=== PATIENT | male | born 1985 | race Caucasian/White ===

== ENCOUNTER 2023-01-10 09:58 | Outpatient (CLI) | payer BC, SELFPAY ==
--- NOTE | 2023-01-10 10:21 | ECG_ITS ---
Measurements Intervals [place] Rate: 59 P: 59 VA: 195 QRS: 31 QRSD: 130 T: 222 QT: 430 QTc: 427 Interpretive Statements SINUS BRADYCARDIA WITH FREQUENT VENTRICULAR PREMATURE COMPLEXES MODERATE INTRAVENTRICULAR CONDUCTION DELAY [105+ ms QRS DURATION, 80+ ms Q/S IN V1/V2, NO Q AND 60+ ms R IN I/aVL/V5/V6] ST DEVIATION AND MODERATE T-WAVE ABNORMALITY, CONSIDER ANTEROLATERAL ISCHEMIA [-0.1+ mV T WAVE IN V3-V6] ST DEVIATION AND MODERATE T-WAVE ABNORMALITY, CONSIDER INFERIOR ISCHEMIA [-0.1+ mV T WAVE IN II/aVF] NO PREVIOUS ECG AVAILABLE FOR COMPARISON Electronically Signed On 01-10-2023 14:29:33 CDT by Nicolasa Sawyer M.D.
== END 2023-01-10 09:59 | disposition home or self-care (01) ==
PROVIDERS: PCP Internal Medicine
DX: I48.19 Other persistent atrial fibrillation (principal); I45.9 Conduction disorder, unspecified
CPT/HCPCS: 93005

== ENCOUNTER 2024-07-20 17:54 | Emergency (ER) | payer SELFPAY ==
--- OUTSIDE RECORDS SUMMARY | 2024-07-20 17:56 | XMS_ITS | Encounter Summary ---
Author Organization [facility] Address [address] [place] [address] Care Team Providers Care Semiconductor Wafers Etch Operator Name Role Phone Josh Donaldson DO Primary Care Provider + Tim Abreu MD Unavailable [phone] Encounter Details Date Type Department Care Team (Late st Contact Info) Description 11/27/2022 MyChart Message Enc [facility] Medical Group Family & Internal Medicine [facility] [address] [place] [address] Josh Donaldson DO [address] [place] [address] Rx to treat poison josee Social History Tobacco Use Types Packs/Day Years Used Date Smoking Tobacco: Never Smokeless Tobacco: Never Alcohol Use Standard Drinks/Week Comments Not Currently 0 (1 standard drink = 0.6 oz pur e alcohol) AUDIT-C Answer Date Recorded Frequency of Alcohol Consumption 2-3 times a wee k 06/21/2019 Average Number of Drinks Not on file 020 Frequency of Binge Drinking Not on file 06/05 PHQ-2 Answer Date Recorded Patient Health Questionnaire-2 Score 0 06/27/2022 Sex and Gender Information Value Date Recorded Sex Assigned at Male 06/30/2024 9:12 AM CDT Legal Sex Male 8:18 PM CDT Gender Identity Male 06/30/2024 9:12 AM CDT Sexual Orientation Not on file Occupation Industry Job Start Date Job End Date Not on file Not on file Not on file Not on file documented as of this encounter Functional Status * RETIRED Are you deaf or do you have serious difficulty hearing Answer Date of Assessment Author Status No 06/22/2019 2:24 AM CDT Activ e * RETIRED Are you blind or do you have serious difficulty seeing, even when wearing glasses? Answer Date of Assessment Author Status No 06/22/2019 2:24 AM CDT Activ e * Do you have serious difficulty walking or climbing stairs? Answer Date of Assessment Author Status No 06/22/2019 2:24 AM CDT Rachael Mendoza RN Active * Do you have difficulty dressing or bathing? Answer Date of Assessment Author Status No 06/22/2019 2:24 AM CDT Rachael Mendoza RN Active * Because of a physical, mental, or emotional condition, do you have difficulty doing errands alone such as visiting a doctor's office or shopping? Answer Date of Assessment Author Status No 06/22/2019 2:24 AM CDT Rachael Mendoza RN Active documented as of this encounter Mental Status * Because of a physical, mental, or emotional condition, do you have serious difficulty concentrating, remembering, or making decisions? Answer Entry Date Author Status No 06/22/2019 2:24 AM CDT Rachael Mendoza RN Active documented in this encounter Plan of Treatment Upcoming Encounters Date Type Department Care Team (Late st Contact Info) Description 09/02/2024 1:00 PM CDT Office Visit [facility] Medical Group Multispecialty Care - [facility] [address] [facility] [address] [place] [phone] Josh Donaldson P, DO [address] [place] [address] Xi Taveras NP [address] [facility] [address] [place] [address] documented as of this encounter Visit Diagnoses Not on filedocumented in this encounter Additional Health Concerns Assessment Noted Time PHQ-9 Depression Total Score: 0 06/27/19 22 9:08 AM CDT documented as of this encounter Care Teams Semiconductor Wafers Etch Operator Relationship Specialty Start Date End Date Josh Donaldson DO [address] [place] [id number] PCP - General FAMILY PRACTICE 07/06/19 Tim Abreu MD [facility]. [facility] [address] [place] [address] [employer] Design Checker CARDIOVASCULAR DISEASE 07/07/19 documented as of this encounter
--- OUTSIDE RECORDS SUMMARY | 2024-07-20 17:56 | XMS_ITS | Encounter Summary ---
Author Organization [facility] Address [address] [place] [address] Care Team Providers Care Hostage Negotiator Name Role Phone None, Provider Primary Care Provider Unavaila Josh Pham DO Primary Care Provider + Tim Abreu MD Unavailable [phone] Encounter Details Date Type Department Care Team (Late st Contact Info) Description 06/30/2019 Hospital Follow-up Call [facility] [place] [address] Sara Hu, Company Manager Social History Tobacco Use Types Packs/Day Years Used Date Smoking Tobacco: Never Smokeless Tobacco: Never Alcohol Use Standard Drinks/Week Comments Yes 0 (1 standard drink = 0.6 oz pur e alcohol) AUDIT-C Answer Date Recorded Frequency of Alcohol Consumption 2-3 times a wee k 06/21/2019 Average Number of Drinks Not on file 020 Frequency of Binge Drinking Not on file 06/05 Sex and Gender Information Value Date Recorded Sex Assigned at Male 06/30/2024 9:12 AM CDT Legal Sex Male 8:18 PM CDT Gender Identity Male 06/30/2024 9:12 AM CDT Sexual Orientation Not on file documented as of this [...] Description 09/02/2024 1:00 PM CDT Office Visit [facility] Medical Group Multispecialty Care - [address], [address] [place] [phone] Josh Donaldson DO [address] [place] [address] Xi Taveras NP [address] [place] [address] [place] [address] documented as of this encounter Visit Diagnoses Not on filedocumented in this encounter Care Teams Hostage Negotiator Relationship Specialty Start Date End Date None, Provider, PCP - General 06/21/19 07/05/19 Josh Donaldson DO [address] [place] [address] PCP - General FAMILY PRACTICE 07/06/19 Tim Abreu MD [facility]. [address] [address] [employer] Outsole Cutter Machine CARDIOVASCULAR DISEASE 07/07/19 documented as of this encounter
--- OUTSIDE RECORDS SUMMARY | 2024-07-20 17:56 | XMS_ITS | Referral Summary ---
Author Organization [facility] Address [address] [facility] [place] [address] Care Team Providers Care Cnc Specialist Name Role Phone MendozaKaelynJosh Josesito Primary Care Provide r Niraj Lima MD PhD Unavailable + Lizabeth Tinoco RN Unavailable Unavaila Letha Templeton MD Unavailable Miscellaneous, Not In File Unavailable Unava ilable Encounters Date Type Department Care Team Description 04/29/2024 Orders Only [facility] Transplant Heart [address] [facility] [address] Mailstop [phone] [place] [address] Lizabeth Tinoco, RN from Last 3 Months Allergies Active Allergy Reactions Criticality Noted Date Comments Albuterol Palpitations Low 10/30/2022 Amoxicillin Hives Medium 06/21/2019 Cefaclor Hives Medium 10/12/2015 Shellfish Containing Products Swelling Medium 2018 Medications aspirin 81 mg enteric coated tabletIndicatio ns:prevention of thrombosis,h/o AFIB Take 1 tablet (81 mg total) by mouth every morning 06/30/19 20 Active cetirizine (ZyrTEC) 10 mg tabletIndicatio ns:Allergic Rhinitis Take 1 tablet (10 mg total) by mouth every morning Active diphenhydramine HCl (BENADRYL ALLERGY ORAL)Indication s:allergy Take 25 mg by mouth as needed Active cholecalciferol (VITAMIN D-3) 2000 unit tablet Take 1 tablet (2,000 Units total) by mouth every morning Active warfarin (COUMADIN) 2 mg tabletIndicatio ns:atrial fibrillation Take 4 tablets (8 mg total) by mouth daily 120 tablet 01/01/20 23 Active Additional Information Patient taking differently: 6 mgoral Daily, Indications: atrial fibrillation, Reported on 02/18/2024 sacubitriL-vals argelia (ENTRESTO) 24-26 mg tabletIndicatio ns:chronic heart failure Take 1 tablet by mouth 2 (two) times a day 180 tablet 3 11/28/19 24 025 Active empagliflozin (JARDIANCE) 10 mg tablet Take 1 tablet (10 mg total) by mouth daily 90 tablet 3 12/03/19 24 Active Klor-Con M20 20 mEq CR tablet TAKE 2 TABLETS BY MOUTH DAILY 180 tablet 3 02/23/20 24 Active carvediloL (COREG) 6.25 mg tablet TAKE 1 TABLET BY MOUTH TWICE A DAY WITH MEALS 180 tablet 3 02/23/20 24 Active spironolactone (ALDACTONE) 25 mg tablet TAKE 1 TABLET (25 MG TOTAL) BY MOUTH DAILY. 90 tablet 3 03/22/20 24 025 Active furosemide (LASIX) 40 mg tablet Take 1 tablet (40 mg total) by mouth daily. May also take 1 tablet (40 mg total) as needed (as needed for fluid retention.). 180 tablet 3 04/29/19 25 026 Active atorvastatin (LIPITOR) 40 mg tablet TAKE 1 TABLET BY MOUTH EVERY DAY 90 tablet 3 07/10/19 25 Active atorvastatin (Lipitor) 40 mg tablet Take 1 tablet (40 mg total) by mouth daily 30 tablet 11 08/06/19 24 025 Discontinued Active Problems Problem Noted Date Diagnosed Date Acute postoperative pain 12/19/2022 Assessment & Plan (12/30/2022 2:54 PM CDT): Postop pain following cardiac surgery. - PRNTylenol - PRN Oxycodone - utilize splinting technique - scheduled Robaxin - Main source of pain right now is the scrotum - OT lymphedema wrapped scrotum with compression and ice as needed ABLA (acute blood loss anemia) 12/19/2022 Assessment & Plan (12/30/2022 2:54 PM CDT): Expected finding following cardiac surgery. - Hgb stable - CBC daily NICM (nonischemic cardiomyopathy) 12/19/2022 Assessment & Plan (12/30/2022 2:51 PM CDT): Intraop AISHA post procedure with EF 35-40% Weaned of the Epi day 1 after surgery Switched metoprolol to home coreg, restarted low dose of home Entresto Will restart Farxiga on discharge Continue Lasix and Aldactone Hematoma of groin 12/19/2022 Assessment & Plan (12/26/2022 4:49 PM CDT): Arterial access intra-op with noted L groin hematoma extending into scrotum. CTA obtained: no evidence of active extravasation or PSA - CBC with drop to 7.6 (from 10), scrotum more enlarged and painful. Urology consulted and a scrotal US was obtained. Results: Mild scrotal wall edema with mild bilateral hydrocele. No intratesticular mass. Mild bilateral varicocele. 8 mm scrotolith in the body of the right epididymis. 3.5 cm hematoma in the left groin, which is not significantly changed in size compared to prior CT study dated 12/17/2022. -Gaytan out, voiding without issues -Swelling remains, will likely take 6-8 weeks to fully heal -Heparin drip as above Dilated aortic root 10/21/2022 Assessment & Plan (12/20/2022 10:29 AM CDT): See Aortic regurgitation problem Pseudoaneurysm 10/21/2022 Severe aortic regurgitation 10/21/2022 Assessment & Plan (12/30/2022 2:50 PM CDT): (12/17) mechanical AVR (27-29 On-X), aortoplasty, bovine pericardial patch repair of pseudoaneurysm and JASMYN ligation (40 mm clip). Intra-op AISHA demonstrating EF 35-40%, normal RV function, no PVL, mild MR and mild TR on 0.05 mcg/kg/min epinephrine Epi weaned off overnight 9/13 Continue ASA, Coreg Statin not indicated 2V CXR: Unchanged cardiomediastinal silhouette with enlarged heart size. Mild bibasilar atelectasis. No pneumothorax. Small left pleural effusion, no right pleural effusion. -Lasix to po, continue aldactone -OT placed Tubigrip compression for scrotal swelling, will likely take 6-8 weeks to fully resolve Atrial fibrillation 06/26/2021 Assessment & Plan (12/30/2022 2:54 PM CDT): S/P ablation and JASMYN clip: Went into AF with RVR 12/19 pm Converted early am after amiodarone (bolus and infusion) on 12/20 Amiodarone bolus x 2 and gtt completed Converted to PO load - Amiodarone TID 4 days, down to daily 12/24 - Intermittent rate controlled a-fib, SR 60s - metoprolol switched to home coreg - Qtc daily - K>4, Mg>2.2 - wires out - Coumadin 9mg - Heparin drip restarted 12/25 Aneurysm of aortic root 02/12/2020 Assessment & Plan (02/12/2020 12:53 PM DATA ACQUISITION TECHNICIAN): AISHA showed LVOT aneursym/pseudoaneurysm in region of fibrous continuity between MV/aortic root --Follow up with Dr. Lima next week Aneurysm of aortic root 02/12/2020 Overview (12/29/2021): Last Assessment & Plan: AISHA showed LVOT aneursym/pseudoaneurysm in region of fibrous continuity between MV/aortic root --Follow up with Dr. Lima next week ABBE on CPAP 11/05/2019 Chronic systolic heart failure 08/25/2019 Assessment & Plan (02/12/2020 12:49 PM DATA ACQUISITION TECHNICIAN): EF 37% in 11/2019. Continue coreg, entresto, [place], lasix and digoxin -Continue digoxin until outpatient follow up Persistent atrial fibrillation 08/25/2019 Assessment & Plan (02/12/2020 12:49 PM DATA ACQUISITION TECHNICIAN): S/p ablation today. Continue eliquis, coreg and digoxin. PPI for ppx per cards. - Rhythm appears sinus on tele w/ frequent PVCs -Follow up with cardiology next week Acute viral myocarditis 07/06/2019 Allergic rhinitis 07/06/2019 History of non-ST elevation myocardial infarctio n (NSTEMI) 07/06/2019 Inguinal strain, left, initial encounter 019 Resolved Problems Problem Noted Date Diagnosed Date Resolved Date Acquired deformity of neck 12/19/2022 0 12/19/2022 Immunizations Immunization Administration Dates Next Due Influenza, Unspecified 02/03/2020 Social History Tobacco Use Types Packs/Day Years Used Date Smoking Tobacco: Never Smokeless Tobacco: Never Alcohol Use Standard Drinks/Week Comments Yes 0 (1 standard drink = 0.6 oz pur e alcohol) rare AUDIT-C Answer Date Recorded Q1: How often do you have a drink containing alc ohol? Monthly or less 12/17/2022 Q2: How many drinks containi ng alcohol do you have on a typical day when you are drinking? 1 or 2 12/17/2022 Q3: How often do you have si x or more drinks on one occasion? Never 12/17/2022 Personal Safety Answer Date Recorded Have you ever been in or are you currently in a harmful physical or emotional relationship or is someone making you feel afraid or unsafe? Denies 12/17/2022 Sex and Gender Information Value Date Recorded Sex Assigned at Not on file Legal Sex Male 8:57 PM DATA ACQUISITION TECHNICIAN Gender Identity Not on file Sexual Orientation Straight 09/08/2019 12 :00 PM CDT Last Filed Vital Signs Vital Sign Reading Time Taken Comments Blood Pressure 138/77 02/18/2024 12:25 PM DATA ACQUISITION TECHNICIAN Pulse 55 02/18/2024 12:25 PM DATA ACQUISITION TECHNICIAN Temperature 36.5 C (97.7 F) 12/31/2022 8:06 AM CDT Respiratory Rate 20 12/31/2022 8:06 AM CDT Oxygen Saturation 100% 02/18/2024 12:25 PM DATA ACQUISITION TECHNICIAN Inhaled Oxygen Concentration - - Weight 129.7 kg (286 lb) 02/18/2024 12:25 PM DATA ACQUISITION TECHNICIAN Height 193 cm (6' 4 ) 02/18/2024 12:25 PM DATA ACQUISITION TECHNICIAN Body Mass Index 34.81 02/18/2024 12:25 PM DATA ACQUISITION TECHNICIAN Plan of Treatment Not on file Medical Devices Implanted Type Area Host/Hostess Restaurant Device Identifier Shelf Expiration Date Model / Serial / Lot [employer] [id number] System 6-12fr Mvp Venous Closure Vascade - [id number] Implanted:Qty: 1 on 02/11/2020 by Anderson Peraza MD at [facility] Collagen N/A: Groin [employer] 11/30/2021 800-612C -10U / / [id number] Description:Ref # 800-612c [employer] [id number] System 6-12fr Mvp Venous Closure Vascade - [id number] Implanted:Qty: 1 on 02/11/2020 by Anderson Peraza MD at [facility] Collagen N/A: Groin [employer] 11/17/2021 800-612C -10U / / [id number] Description:Ref # 800-612c [employer] [id number] System 6-12fr Mvp Venous Closure Vascade - [id number] Implanted:Qty: 1 on 02/11/2020 by Anderson Peraza MD at [facility] Collagen N/A: Groin [employer] 11/30/2021 800-612C -10U / / [id number] Description:Ref # 800-612c [employer]um[employer] 53[employer] Medical Cheryl Angio-Seal Vip 6fr Closere Device [id number] - [id number] - [id number] Implanted:Qty: 1 on 12/16/2022 by Mike Williamson MD at [facility] Collagen [employer] Cheryl 07/06/2023 [id number] / [id number] / [id number] [employer] Cheryl Supple Alejandra-Guard [place] Processing 4x4cm Patch Cardiovascular [id number] - S3 - [id number] Implanted:Qty: 1 on 12/17/2022 by Letha Singh MD at [facility] Other - see comments [employer] Cheryl [id number] 07/03/2023 [id number] / 3 / [id number] Atricure Dup Atriclip [place]-Elvis L40 Mm L6 Mm Head Articulation Stiff [id number] - [id number] Implanted:Qty: 1 on 12/17/2022 by Letha Singh MD at [facility] Other - see comments N/A: Heart ATRICURE DUP 04/07/2025 [id number] / / [id number] Description:[place] no. [id number] [employer] 6x6in Patch Thk1.65mm [place] Cardiovascular Ptfe Sterile Latex Free [id number] - [id number] Implanted:Qty: 1 on 12/17/2022 by Letha Singh MD at [facility] N/A: Heart [employer] [id number] 02/01/2027 [id number] / / [id number] On-X Intrnl Valve Coronary Aortic Mechanical On X 27-29mm Onxane- - [id number] - [id number] Implanted:Qty: 1 on 12/17/2022 by Letha Singh MD at [facility] N/A: Heart On-X Intrnl [id number] 03/06/2028 ONXANE-2 11/02 / [id number] / Insurance [facility] CHOICE PLUS [facility] CHOICE PLUS ANTHEM ACCESS CHOICE ANTHEM ACCESS CHOICE [address] [place] [address] Advance Directives For more information, please contact: [phone] * Full Code (Latest Code Status on File) Date Activated Date Inactivated Comments 12/17/2022 11:29 AM 12/31/2022 4:57 PM * Full Code Date Activated Date Inactivated Comments 12/16/2022 2:12 PM 12/16/2022 8:14 PM * Full Code Date Activated Date Inactivated Comments 02/11/2020 7:38 PM 02/12/2020 5:21 PM Care Teams Cnc Specialist Relationship Specialty Start Date End Date Josh Donaldson DO [address] [place] [address] PCP - General Family Medicine 07/27/19 Niraj Lima MD PhD [address] [place] [address] Cardiology 02/21/20 Lizabeth Tinoco RN Heart Failure Coordinator 04/17/[address] [facility] [id number] [place] [address] Surgeon Cardiothoracic Surgery 12/31/22 Miscellaneous, Not In File 12/31/22"
--- OUTSIDE RECORDS SUMMARY | 2024-07-20 17:56 | XMS_ITS | Clinical Summary ---
Author Organization [facility] Address [address] [address] Care Team Providers Care Lead Ramp Service Man Name Role Phone Mendoza Josh Josesito Primary Care Provide r Niraj Lima MD PhD Unavailable + Lizabeth Tinoco RN Unavailable Unavaila Letha Templeton MD Unavailable Miscellaneous, Not In File Unavailable Unava ilable Allergies Active Allergy Reactions Criticality Noted Date [...] compared to prior CT study dated 12/17/2022. -Gatyan out, voiding without issues -Swelling remains, will [...] 0.05 mcg/kg/min epinephrine Epi weaned off overnight 12/18 Continue ASA, Coreg Statin not indicated 2V [...] 02/12/2020 Assessment & Plan (02/12/2020 12:53 PM AGENCY CASHIER): AISHA showed LVOT aneursym/pseudoaneurysm in region of [...] 08/25/2019 Assessment & Plan (02/12/2020 12:49 PM AGENCY CASHIER): EF 37% in 11/2019. Continue coreg, entresto, [place], lasix and digoxin -Continue digoxin until outpatient follow up Persistent atrial fibrillation 08/25/2019 Assessment & Plan (02/12/2020 12:49 PM AGENCY CASHIER): S/p ablation today. Continue eliquis, coreg and [...] Acquired deformity of neck 12/19/2022 0 12/19/2022 Encounters Date Type Department Care Team Description 04/29/2024 Orders Only [facility] Transplant Heart [phone] [place] [address] Lizabeth Tinoco RN from Last 3 Months Immunizations Immunization Administration Dates Next Due Influenza, Unspecified 02/03/2020 Surgical History Surgery Date Site/Laterality Comments EYE SURGERY INGUINAL HERNIA REPAIR ABLATION 02/06/2020 - 03/06/2020 a fib Medical History Medical History Date Comments Inguinal hernia bilateral, non-recurrent as a child Sleep apnea A-fib (HCC) NICM (nonischemic cardiomyopathy) (HCC) AR (aortic regurgitation) ABBE (obstructive sleep apnea) PVC's (premature ventricular contractions) CHF (congestive heart failure) ([facility]) Hypertension Acquired deformity of neck 12/19/2022 Family History Medical History Relation Name Comments Hypertension Father Diabetes Mother Relation Name Status Comments Father Mother Social History Tobacco Use Types Packs/Day Years [...] on file Legal Sex Male 8:57 PM AGENCY CASHIER Gender Identity Not on file Sexual Orientation Straight 09/08/2019 12 :00 PM CDT Obstetrics History Last Filed Vital Signs Vital Sign Reading Time Taken Comments Blood Pressure 138/77 02/18/2024 12:25 PM AGENCY CASHIER Pulse 55 02/18/2024 12:25 PM AGENCY CASHIER Temperature 36.5 C (97.7 F) 12/31/2022 8:06 AM CDT Respiratory Rate 20 12/31/2022 8:06 AM CDT Oxygen Saturation 100% 02/18/2024 12:25 PM AGENCY CASHIER Inhaled Oxygen Concentration - - Weight 129.7 kg (286 lb) 02/18/2024 12:25 PM AGENCY CASHIER Height 193 cm (6' 4 ) 02/18/2024 12:25 PM AGENCY CASHIER Body Mass Index 34.81 02/18/2024 12:25 PM AGENCY CASHIER Plan of Treatment Health Maintenance Due Date Last Done Comments Depression Screening 1983 Hepatitis C Screening 1983 Varicella Vaccines (1 of 2 - 13+ 2-dose series) 01/03/1996 Regular Well Visit/Exam 18-64 2001 Pneumococcal vaccine <65 (2 of 2 - PCV) 07/05/2020 07/06/2019 Covid-19 Vaccine (4 - 2023-2 5 season) 2023 04/20/2021, 07/23/2020, 07/02/2020 Influenza Vaccine (Season Ended) 2024 02/03/2020 DTaP/Tdap/Td Vaccine (2 - Td or Tdap) 07/05/2029 07/06/2019, 10/01/2006 Hepatitis B Screening Completed 04/14/2002 HPV Vaccines Aged Out No longer eligi ble based on patient's age to complete this topic Medical Devices Implanted Type Area Photo Stylist Device Identifier Shelf Expiration Date Model / Serial / Lot [employer] [id number] System 6-12fr Mvp Venous Closure Vascade - [id number] Implanted:Qty: 1 on 02/11/2020 by Anderson Peraza MD at [facility] Collagen N/A: Groin [employer] 11/30/2021 800-612C -10U / / [id number] Description:Ref # [id number] [employer] [id number] System 6-12fr Mvp Venous Closure Vascade - [id number] Implanted:Qty: 1 on 02/11/2020 by Anderson Peraza MD at [facility] Collagen N/A: Groin [employer] 11/17/2021 800-612C -10U / / [id number] Description:Ref # [id number] [employer] [id number] System 6-12fr Mvp Venous Closure Vascade - [id number] Implanted:Qty: 1 on 02/11/2020 by Anderson Peraza MD at [facility] Collagen N/A: Groin [employer] 11/30/2021 800-612C -10U / / [id number] Description:Ref # [id number] [employer] Cheryl Angio-Seal Vip 6fr Closere Device [id number] - [id number] - [id number] Implanted:Qty: 1 on 12/16/2022 by Mike Williamson MD at [facility] Collagen [employer] Cheryl 07/06/2023 [id number] / [id number] / [id number] [employer] Cheryl Supple Alejandra-Guard [place] Processing 4x4cm Patch Cardiovascular [id number] - S3 - [id number] Implanted:Qty: 1 on 12/17/2022 by Letha Singh MD at [facility] Other - see comments [employer] Cheryl [id number] 07/03/2023 [id number] / [id number] / [id number] Atricure Dup Atriclip Gillinov-Elvis L40 Mm L6 Mm Head Articulation Stiff [id number] - [id number] Implanted:Qty: 1 on 12/17/2022 by Letha Singh MD at [facility] Other - see comments N/A: Heart ATRICURE DUP 04/07/2025 [id number] / / [id number] Description:[place] no. [id number] [employer] 6x6in Patch Thk1.65mm [place] Cardiovascular Ptfe Sterile Latex Free [id number] - [id number] Implanted:Qty: 1 on 12/17/2022 by Letha Singh MD at [facility] N/A: Heart [employer] [id number] 02/01/2027 [id number] / / [id number] On-X Intrnl Valve Coronary Aortic Mechanical On X 27-29mm Onxane- - [id number] - [id number] Implanted:Qty: 1 on 12/17/2022 by Letha Singh MD at [facility] N/A: Heart On-X Intrnl [id number] 03/06/2028 ONXANE-2 11/02 / [id number] / Insurance [facility] CHOICE PLUS [facility] CHOICE PLUS [facility] ACCESS CHOICE ANTHEM ACCESS CHOICE [address] [place] [address] Advance Directives For more information, please contact: [phone] * Full Code (Latest Code Status on File) Date Activated Date Inactivated Comments 12/17/2022 11:29 AM 12/31/2022 4:57 PM * Full Code Date Activated Date Inactivated Comments 12/16/2022 2:12 PM 12/16/2022 8:14 PM * Full Code Date Activated Date Inactivated Comments 02/11/2020 7:38 PM 02/12/2020 5:21 PM Care Teams Lead Ramp Service Man Relationship Specialty Start Date End Date Josh Donaldson DO [address] [place] [address] PCP - General Family Medicine 07/27/19 Niraj Lima MD PhD [address] [place] [address] Cardiology 02/21/20 Lizabeth Tinoco, acid remover Failure Coordinator 04/17/21 Letha Singh MD [id number] [place] [address] Surgeon Cardiothoracic Surgery 12/31/22 Miscellaneous, Not In File 12/31/22
--- OUTSIDE RECORDS SUMMARY | 2024-07-20 17:56 | XMS_ITS | Encounter Summary ---
Author Organization [facility] Address [address] [place] [address] Phone Care Team Providers Care Manufacturing Project Manager Name Role Phone Josh Donaldson DO Primary Care Provide r Niraj Lima MD PhD Unavailable + Lizabeth Tinoco RN Unavailable Unavaila Letha Templeton MD Unavailable Miscellaneous, Not In File Unavailable Unava ilable Encounter Details Date Type Department Care Team (Latest Contact Info) Description 01/10/2023 Orders Only [facility] Scanning, Provider Social History Tobacco Use Types Packs/Day Years [...] on file 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 Gender Identity Not on file Sexual Orientation Straight 09/08/2019 12 :00 PM CDT documented as of this encounter Plan of Treatment Not on file documented as of this encounter Procedures Procedure Name Priority Date/Time Associated Diagnosis Comments CARDIOLOGY DOCUMENT SCAN 01/10/2023 documented in this encounter Results * CARDIOLOGY DOCUMENT SCAN (01/10/2023) Anatomical Region Laterality Modality Other us Provider Scanning CV CARDIAC SERVICES PROCEDURES Final Result documented in this encounter Visit Diagnoses Not on filedocumented in this encounter Care Teams Manufacturing Project Manager Relationship Specialty Start Date End Date Josh Donaldson DO [address] [place] [address] PCP - General Family Medicine 07/27/19 Niraj Lima MD PhD [address] [place] [address] Cardiology 02/21/20 Lizabeth Tinoco RN Heart Failure Coordinator 04/17/21 Letha Singh MD [id number] [place] [address] Surgeon Cardiothoracic Surgery 12/31/22 Miscellaneous, Not In File 12/31/22 documented as of this encounter
--- OUTSIDE RECORDS SUMMARY | 2024-07-20 17:56 | XMS_ITS | Encounter Summary ---
Author Organization [facility] Address [address] [place] [address] Care Team Providers Care Telecommunications Line Installer Name Role Phone Josh Donaldson DO Primary Care Provider + Tim Abreu MD Unavailable [phone] Encounter Details Date Type Department Care Team (Late st Contact Info) Description 11/27/2022 BitPasst Message Enc [facility] Medical Group Family & Internal Medicine [facility] [address] [place] [address] Josh Donaldson DO [address] [place] [address] RE: Rx for poison josee Social History Tobacco Use Types [...] Description 09/02/2024 1:00 PM CDT Office Visit [facility] Medical Group Multispecialty Care - [facility] [address] [facility] [address] [place] [address] Josh Donaldson P, DO [address] [place] [address] Xi Taveras NP [address] [facility] [address] [place] [address] documented as of this encounter Visit Diagnoses Not on filedocumented in this encounter Additional Health Concerns Assessment Noted Time PHQ-9 Depression Total Score: 0 06/27/19 22 9:08 AM CDT documented as of this encounter Care Teams Telecommunications Line Installer Relationship Specialty Start Date End Date Josh Donaldson DO [address] [place] [address] PCP - General FAMILY PRACTICE 07/06/19 Tim Abreu MD [facility]. [address] [address] [place] Government Relations Analyst CARDIOVASCULAR DISEASE 07/07/19 documented as of this encounter
--- OUTSIDE RECORDS SUMMARY | 2024-07-20 17:57 | XMS_ITS | Clinical Summary ---
Author Organization [facility] Address [address] [place] [address] Phone Care Team Providers Care Board Finisher Name Role Phone Unavailable Primary Care Provider Unavailabl e Allergies Active Allergy Reactions Criticality Noted Date Comments Cefaclor Hives High 10/12/2015 Medications cetirizine-pseu doephedrine sr 12 hour (ZYRTEC-D) 5-120 mg tablet Take 1 Tablet by mouth 2 times daily. Active albuterol HFA 90 mcg inhaler Take 2 Puffs by inhalation 4 times daily. 8.5 Gram 0 Active benzonatate (TESSALON) 200 mg capsule Take 1 Capsule (200 mg) by mouth 3 times daily as needed for Cough. 30 Capsule 1 0 Active albuterol HFA 90 mcg inhaler Take 2 Puffs by inhalation 4 times daily. 8.5 Gram 0 Active Active Problems No known active problems Family History Medical History Relation Name Comments Healthy Father Diabetes Mother Relation Name Status Comments Father Alive Mother Alive Social History Tobacco Use Types Packs/Day Years Used Date Smoking Tobacco: Never Alcohol Use Standard Drinks/Week Comments No 0 (1 standard drink = 0.6 oz pur e alcohol) Sex and Gender Information Value Date Recorded Sex Assigned at Not on file Legal Sex Male 12:57 PM CDT Gender Identity Not on file Sexual Orientation Not on file Last Filed Vital Signs Vital Sign Reading Time Taken Comments Blood Pressure 168/92 06/01/2019 2:09 PM TIE MAN Pulse 92 06/01/2019 2:09 PM TIE MAN Temperature 37 C (98.6 F) 06/01/2019 2:09 PM TIE MAN Respiratory Rate 16 06/01/2019 2:09 PM TIE MAN Oxygen Saturation 98% 06/01/2019 2:09 PM TIE MAN Inhaled Oxygen Concentration - - Weight 138.3 kg (305 lb) 06/01/2019 2:09 PM TIE MAN Height 193 cm (6' 4 ) 06/01/2019 2:09 PM TIE MAN Body Mass Index 37.13 06/01/2019 2:09 PM TIE MAN Plan of Treatment Health Maintenance Due Date Last Done Comments DTAP/TDAP/TD VACCINES (1 - Tdap) 2002 HEPATITIS B VACCINES (1 of 3 - 19+ 3-dose series) 2002 INFLUENZA VACCINE (#1) 2023 HPV VACCINES Aged Out No longer eligi ble based on patient's age to complete this topic Insurance [employer] P[employer] Cornice CHOICE
--- OUTSIDE RECORDS SUMMARY | 2024-07-20 17:57 | XMS_ITS | Encounter Summary ---
Author Organization [facility] Address [address] [place] [address] Care Team Providers Care Coverstitch Binder Name Role Phone Josh Donaldson Primary Care Provider + Tim Abreu MD Unavailable [phone] Encounter Details Date Type Department Care Team (Late st Contact Info) Description 09/02/2019 [facility] [facility], [address] [address] Tim Abreu MD [facility]. [address] [address] Follow Up/Update Social History Tobacco Use Types Packs/Day Years [...] on file 06/05 PHQ-2 Answer Date Recorded PHQ-2 Score 0 07/06/2019 Sex and Gender Information Value Date Recorded Sex Assigned at Male 06/30/2024 9:12 AM CDT Legal Sex Male 8:18 PM CDT Gender Identity Male 06/30/2024 9:12 AM CDT Sexual Orientation Not on file Occupation Industry Job Start Date Job End Date Not on file Not on file Not on file Not on file COVID-19 Exposure Response Date Recorded In the last month, have you been in contact with someone who was confirmed or suspected to have Coronavirus / COVID-19? No / Unsure 08/05/2019 10:04 AM CDT documented as of this encounter Functional Status [...] Description 09/02/2024 1:00 PM CDT Office Visit [facility] Medical [facility] Multispecialty Care - [address], [address] [place] [id number] Josh Donaldson, DO [address] [place] [address] Xi Taveras NP [address] [facility] [address] [place] [address] documented as of this encounter Visit Diagnoses Not on filedocumented in this encounter Additional Health Concerns Assessment Noted Time PHQ-9 Depression Total Score: 0 07/06/19 20 8:41 AM CDT documented as of this encounter Care Teams Coverstitch Binder Relationship Specialty Start Date End Date Josh Donaldson DO [address] [place] [address] PCP - General FAMILY PRACTICE 07/06/19 Tim Abreu MD [address] [place] [address] [place] [employer] CARDIOVASCULAR DISEASE 07/07/19 documented as of this encounter
--- OUTSIDE RECORDS SUMMARY | 2024-07-20 17:57 | XMS_ITS | Encounter Summary ---
Author Organization [facility] Address [address] [place] [address] Phone Care Team Providers Care Doctor Of Podiatry Name Role Phone Josh Donaldson Primary Care Provide r Kira Robertson RN Unavailable Niraj Lima MD PhD Unavailable + Liz Ruvalcaba RN Unavailable Lizabeth Tinoco RN Unavailable Unavaila Lizabeth Wilkerson RN Unavailable Unavaila Letha Templeton MD Unavailable Miscellaneous, Not In File Unavailable Unava ilable Encounter Details Date Type Department Care Team (Latest Contact Info) Description 11/16/2019 Orders Only [facility] Scanning, Provider Social History Tobacco Use Types Packs/Day Years Used Date Smoking Tobacco: Never Smokeless Tobacco: Never Alcohol Use Standard Drinks/Week Comments Yes 0 (1 standard drink = 0.6 oz pur e alcohol) socially Sex and Gender Information Value Date Recorded Sex Assigned at Not on file 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 Gender Identity Not on file Sexual Orientation Straight 09/08/2019 12 :00 PM CDT documented as of this encounter Plan of Treatment Not on file documented as of this encounter Procedures Procedure Name Priority Date/Time Associated Diagnosis Comments CARDIOLOGY DOCUMENT SCAN 11/16/2019 documented in this encounter Results * SCAN - CARDIOLOGY (11/16/2019) Anatomical Region Laterality Modality Other us Provider Scanning CV CARDIAC SERVICES PROCEDURES Final Result documented in this encounter Visit Diagnoses Not on filedocumented in this encounter Additional Health Concerns Infection Onset Date Last Indicated Resolved Time COVID: Suspected 12/29/2021 12/29/2021 12/29/2021 3:47 PM CDT documented as of this encounter Care Teams Doctor Of Podiatry Relationship Specialty Start Date End Date MigdalialauroramanJosh DO Josesito [facility] [place] [address] PCP - General Family Medicine 07/27/19 Kira Robertson, RN [address] [address] 02/21/20 05/08/22 Niraj Lima MD PhD [address] [address] Cardiology 02/21/20 Liz Ruvalcaba, TYSHAWN [address] [address] 06/29/20 06/24/21 Lizabeth Tinoco, manager background Failure Coordinator 04/17/21 Lizabeth Tinoco, optical scientistCurb Hop 06/25/21 06/25/21 Letha Singh MD [id number] [place] [address] Surgeon Cardiothoracic Surgery 12/31/22 Miscellaneous, Not In File 12/31/22 documented as of this encounter
--- OUTSIDE RECORDS SUMMARY | 2024-07-20 17:57 | XMS_ITS | Clinical Summary ---
Author Organization [facility] Address [address] [place] [address] Care Team Providers Care Senior Business Intelligence Analyst Name Role Phone Josh Donaldson Татьяна VERA Primary Care Provider + Tim Abreu MD Unavailable [phone] Allergies Active Allergy Reactions Criticality Noted Date Comments Albuterol Palpitations Low 10/30/2022 Amoxicillin Hives Medium 06/21/2019 Cefaclor Hives 10/12/2015 Shellfish Allergy Swelling Medium 06/29/2018 Medications furosemide 40 MG tabletIndicatio ns:Shortness of breath Take 1 tablet (40 mg total) by mouth daily. 90 tablet 1 08/05/19 20 Active cetirizine 10 MG tablet Take 1 tablet (10 mg total) by mouth daily. Active aspirin EC 81 MG tablet Take 1 tablet (81 mg total) by mouth daily. 06/30/19 20 Active spironolactone 25 MG tablet TAKE 1 TABLET BY MOUTH EVERY DAY 08/28/19 21 Active Vitamin D3 (CHOLECALCIFERO L) 50 mcg tablet Take 1 tablet (2,000 Units total) by mouth daily. Active diphenhydrAMINE (BENADRYL) 50 MG Cap capsule Take 25 mg by mouth as needed. Active sacubitril-vals argelia (ENTRESTO) 24-26 MG tablet Take 1 tablet by mouth 2 (two) times daily. 01/01/20 23 Active JARDIANCE 10 MG tablet Take 1 tablet (10 mg total) by mouth daily. Active KLOR-CON M20 20 MEQ tablet Take 2 tablets (40 mEq total) by mouth daily. Active carvedilol (COREG) 6.25 MG tablet Take 1 tablet (6.25 mg total) by mouth 2 (two) times daily with meals. Active atorvastatin (LIPITOR) 40 MG tablet Take 1 tablet (40 mg total) by mouth daily. Active warfarin (COUMADIN) 1 MG tabletIndicatio ns:Anticoagulan t long-term use TAKE 1-2 TABLETS BY MOUTH ONCE DAILY WITH 6 MG TABLET, INDICATED BY CURRENT REGIMEN. 180 tablet 1 07/10/19 25 Active warfarin (COUMADIN) 6 MG tabletIndicatio ns:Anticoagulan t long-term use TAKE 1 TABLET BY MOUTH DAILY. 90 tablet 1 07/10/19 25 Active Dapagliflozin Propanediol (FARXIGA) 10 MG Tab Take 1 tablet (10 mg total) by mouth daily. 02/29/20 21 025 Discontinued(Fo rmulary change) warfarin (COUMADIN) 6 MG tabletIndicatio ns:Anticoagulan t long-term use Take 1 tablet (6 mg total) by mouth daily. 90 tablet 1 01/01/20 24 025 Discontinued warfarin (COUMADIN) 1 MG tabletIndicatio ns:Anticoagulan t long-term use TAKE 1-2 TABLETS BY MOUTH ONCE DAILY WITH 6 MG TABLET, INDICATED BY CURRENT REGIMEN. 180 tablet 1 01/23/20 24 025 Discontinued Active Problems Problem Noted Date Diagnosed Date History of mechanical aortic valve replacement 0 12/17/2022 Chronic atrial fibrillation ([facility]) Aneurysm of aortic root ([facility]) 02/12/2020 Overview (07/24/2020): Last Assessment & Plan: AISHA showed LVOT aneursym/pseudoaneurysm in region of fibrous continuity between MV/aortic root --Follow up with Dr. Lima next week ABBE on CPAP 11/05/2019 Chronic systolic heart failure ([facility]) 08/25/2019 History of non-ST elevation myocardial infarctio n (NSTEMI) 07/06/2019 Allergic rhinitis, unspecifi ed seasonality, unspecified trigger 07/06/2019 Acute viral myocarditis (HHS/HCC) 07/06/2019 Resolved Problems Problem Noted Date Diagnosed Date Resolved Date Inguinal strain, left, initial encounter 06/29/2018 06/26/2021 Encounters Date Type Department Care Team Description 06/30/2024 9:00 AM CDT Office Visit [facility] Family & Internal [address] [address] Josh Donaldson P, DO Physical (The patient presents for annual physical. ); Knee Pain (The patient fell about 3 months ago and injured his lt knee. The patient did not seek medical tx and states it still does not feel right. ) 06/30/2024 Scan [employer] SRVCS Scanned, Doc Med Group Sleep Study (SCAN) 06/30/2024 Orders Only [facility] Internal [address] [address] Josh Donaldson P, DO 06/30/[address] [address] Josh Donaldson, DO Question 06/30/2024 Travel 06/09/[address] [address] Josh Donaldson, DO Results 06/07/2024 Orders Only [facility] Internal [address] [address] Josh Donaldson P, DO 05/11/[address] [address] Josh Donaldson, DO Results 05/10/2024 Orders Only [facility] Internal [address] [address] Josh Donaldson, DO from Last 3 Months Immunizations Immunization Administration Dates Next Due Fluzone 6 Months+ Quad (0.5 mL Prefilled Syringe) 02/03/2020 Hepatitis B Pediatric 04/14/2002 PFIZER COVID-19 (ORIGINAL FO RMULATION, PURPLE CAP) mRNA, LNP-S, PF, 30 MCG/0.3 ML DOSE 04/20/2021,07/23/2020,07/02/2020 Pneumococcal (Pneumovax 23) 07/06/2019 Pneumococcal (Prevnar 20) 06/27/2022 Tdap (Adacel) 07/06/2019 Tetanus/Diptheria 10/01/2006 Family History Medical History Relation Comments Hypertension Brother Arthritis Father Cancer Father Accute myloid le ukemia Hypertension Father [place] Maternal Grandfather Arthritis Mother Cancer Mother Brain tumor Diabetes Mother Type 2 diabetes Cancer Paternal Grandfather Liver Relation Status Comments Brother Father Alive Maternal Grandfather Mother Alive Paternal Grandfather Social History Tobacco Use Types Packs/Day Years Used Date Smoking Tobacco: Never Smokeless Tobacco: Never Tobacco Cessation:Counseling Given: Yes Alcohol Use Standard Drinks/Week Comments Not Currently 0 (1 standard drink = 0.6 oz pur e alcohol) AUDIT-C Answer Date Recorded Frequency of Alcohol Consumption 2-3 times a wee k 06/21/2019 Average Number of Drinks Not on file 020 Frequency of Binge Drinking Not on file 06/05 PHQ-2 Answer Date Recorded Patient Health Questionnaire-2 Score 0 06/30/2024 Sex and Gender Information Value Date Recorded Sex Assigned at Male 06/30/2024 9:12 AM CDT Legal Sex Male 8:18 PM CDT Gender Identity Male 06/30/2024 9:12 AM CDT Sexual Orientation Not on file Occupation Industry Job Start Date Job End Date Not on file Not on file Not on file Not on file Last Filed Vital Signs Vital Sign Reading Time Taken Comments Blood Pressure 132/86 06/30/2024 9:13 AM CDT Pulse 69 06/30/2024 9:13 AM CDT Temperature 36.3 C (97.3 F) 06/30/2024 9:13 AM CDT Respiratory Rate 16 06/30/2024 9:13 AM CDT Oxygen Saturation 97% 06/30/2024 9:13 AM CDT Inhaled Oxygen Concentration - - Weight 133.6 kg (294 lb 9.6 oz) 06/30/2024 9:13 AM CDT Height 193 cm (6' 4 ) 06/30/2024 9:13 AM CDT Body Mass Index 35.86 06/30/2024 9:13 AM CDT Plan of Treatment Upcoming Encounters Date Type Department Care Team (Late st Contact Info) Description 09/02/2024 1:00 PM CDT Office Visit [facility] Medical Group Multispecialty Care - [facility] [address] [place] [address] Josh Donaldson P, DO [address] [place] [address] iX Taveras NP [address] [facility] [address] [place] [address] Health Maintenance Due Date Last Done Comments Annual Physical 06/30/2025 06/30/2024, 06/06, 06/27/2022, Additional history exists Hepatitis B Vaccines (2 of 3 - 19+ 3-dose series) 06/30/2025 04/14/2002 Postponed from 05/12/2002 (Patient/Guardian Refusal) DTaP, Tdap and Td Vaccines (2 - Td or Tdap) 07/05/2029 07/06/2019, 10/01/2006 COVID-19 Vaccine ( season) 2112 04/20/2021, 07/23/2020, 07/02/2020 Postponed from 12/07/2023 (Going to Outside Clinic) Hepatitis C Completed 06/24/2019 Pneumococcal Vaccine: Pediatrics (0 to 5 Years) and At-Risk Patients (6 to 49 Years) Completed 06/27/2022, 07/06/2019 PHQ-2 (Physician [place]) Completed 06/30/2024 HPV Vaccines Aged Out No longer eligi ble based on patient's age to complete this topic Meningococcal B Vaccine Aged Out No l onger eligible based on patient's age to complete this topic Meningococcal Vaccine Aged Out No kanwal lety eligible based on patient's age to complete this topic RSV Immunizations Under 20 Months Aged Out No longer eligible based on patient's age to complete this topic Procedures Procedure Name Priority Date/Time Associated Diagnosis Comments PROTHROMBIN TIME, VENOUS Routine 06/30/2024 10:18 AM CDT VITAMIN D, 25 OH Routine 06/30/2024 10:1 7 AM CDT Encounter for preventative adult health care examination Vitamin D deficiency Screening for lipid disorders Screening for endocrine, metabolic and immunity disorder LIPID PANEL Routine 06/30/2024 10:17 AM CDT Encounter for preventative adult health care examination Screening for lipid disorders Screening for endocrine, metabolic and immunity disorder COMPREHENSIVE METABOLIC PANEL Routine 06/30/2024 10:17 AM CDT Encounter for preventative adult health care examination Screening for lipid disorders Screening for endocrine, metabolic and immunity disorder CBC W/DIFF AUTOMATED Routine 06/30/2024 10:17 AM CDT Encounter for preventative adult health care examination Screening for lipid disorders Screening for endocrine, metabolic and immunity disorder TSH W/REFLEX Routine 06/30/2024 10:17 AM CDT Encounter for preventative adult health care examination Screening for lipid disorders Screening for endocrine, metabolic and immunity disorder SLEEP STUDY GENERIC (SCAN ORDER) 06/30/2024 PROTHROMBIN TIME, VENOUS Routine 06/07/2024 9:59 AM CHOP SAW OPERATOR PROTHROMBIN TIME, VENOUS Routine 05/10/2024 12:47 PM CHOP SAW OPERATOR HEPATITIS PANEL,ACUTE Routine 06/24/2019 4:52 AM CDT from Last 3 Months or Most Recently Relevant to Health Maintenance Results * (ABNORMAL) PROTIME/INR, VENOUS (06/30/2024 10:18 AM CDT) Only the most recent of3 resultswithin the time period is included. [facility] Signature INR 2.3(H) [facility] [place] Comment: Reference Range 0.9-1.1 Moderate-intensity Warfarin Therapy 2.0-3.0 Higher-intensity Warfarin Therapy 3.0-4.0 PROTIME 23.2(H) 9.0 - 11.5 sec [facility] [place] Comment: For additional information, please refer to http://education.[employer]/faq/KRL488 (This link is being provided for informational/ educational purposes only.) 06/30/2024 10:1 8 AM CDT 06/30/2024 10:19 AM CDT Narrative Resulting Agency Comment Performing Organization Information: Site ID: [facility] Address: [address] [place] [address] Director: Mal Shore Josh Donaldson DO LABORATORY Final Re sult Performing Organization Address City/[facility] Co de Phone Number [facility] [address] [address], * TSH W/REFLEX (06/30/2024 10:17 AM CDT) TSH 1.22 0.40 - 4.50 mIU/L [facility] 06/30/2024 10:1 7 AM CDT 06/30/2024 10:17 AM CDT Narrative [facility] - 07/01/2024 5:34 AM CDT FASTING:NO FASTING: NO Resulting Agency Comment Performing Organization Information: Site ID: [place] Name: [facility] Address: [address] [place] [address] Director: Mal Shore MD us Josh Donaldson DO LABORATORY Final Re sult [facility] [address] [place] [address], * COMPREHENSIVE METABOLIC PANEL (06/30/2024 10:17 AM CDT) GLUCOSE 101 65 - 139 mg/dL [facility] Comment: Non-fasting reference interval BUN 15 7 - 25 mg/dL [facility] CREATININE S/P/B 0.84 0.60 - 1.29 mg/dL [facility] GFR ESTIMATE 112 > OR = 60 mL/min/1. 73m2 [facility] BUN CREATININE RATIO SEE NOTE: 6 - (calc) [facility] Comment: Not Reported: BUN and Creatinine are within reference range. SODIUM S/P/B 138 135 - 146 mmol/L [facility] POTASSIUM S/P/B 4.2 3.5 - 5.3 mmol/L [facility] CHLORIDE S/P/B 99 98 - 110 mmol/L [facility] CO2 29 20 - 32 mmol/L [facility] CALCIUM S/P/B 9.8 8.6 - 10.3 mg/dL [facility] TOTAL PROTEIN S/P/B 7.9 6.1 - 8.1 g/dL [facility] ALBUMIN S/P/B 4.9 3.6 - 5.1 g/dL [facility] GLOBULIN 3.0 1.9 - 3.7 g/dL (calc) [facility] ALBUMIN/GLOBULI N RATIO 1.6 1.0 - 2.5 (calc) [facility] BILIRUBIN TOTAL S/P/B 0.7 0.2 - 1.2 mg/dL [facility] ALKALINE PHOSPHATASE S/P/B 55 36 - 130 U/L [facility] AST 31 10 - 40 U/L [facility] ALT 44 9 - 46 U/L [facility] 06/30/2024 10:1 7 AM CDT 06/30/2024 10:17 AM CDT Narrative [facility] - 07/01/2024 5:34 AM CDT FASTING:NO FASTING: NO Resulting Agency Comment Performing Organization Information: Site ID: [place] Name: [facility] Address: [address] [address] Director: Mal Shore MD Josh Donaldson DO LABORATORY Final Re sult [facility] [address] [address], * (ABNORMAL) LIPID PANEL (06/30/2024 10:17 AM CDT) CHOLESTEROL 173 <200 mg/dL [facility] HDL 52 > OR = 40 mg/dL [facility] TRIGLYCERIDES 207(H) <150 mg/dL [facility] Comment: If a non-fasting specimen was collected, consider repeat triglyceride testing on a fasting specimen if clinically indicated. Deon et al. J. of Clin. Lipidol. 2015;9:129-169. LDL (CALCULATED) 91 mg/dL (calc) [facility] Comment: Reference range: <100 Desirable range <100 mg/dL for primary prevention; <70 mg/dL for patients with CHD or diabetic patients with > or = 2 CHD risk factors. LDL-C is now calculated using the Alverto-Ha calculation, which is a validated novel method providing better accuracy than the Friedewald equation in the estimation of LDL-C. Alverto SS et al. SRIRAM. 2013;310(19): 0832-2961 (http://education.SPark!/faq/SEL040) CHOL/HDL RATIO 3.3 <5.0 (calc) [facility] NON HDL CHOLESTEROL 121 <130 mg/dL (calc) [facility] Comment: For patients with diabetes plus 1 major ASCVD risk factor, treating to a non-HDL-C goal of <100 mg/dL (LDL-C of <70 mg/dL) is considered a therapeutic option. 06/30/2024 10:1 7 AM CDT 06/30/2024 10:17 AM CDT Narrative [facility] LAINE[facility] - 07/01/2024 5:34 AM CDT FASTING:NO FASTING: NO Resulting Agency Comment Performing Organization Information: Site ID: [place] Name: [facility] Address: [address] [address] Director: Mal Shore MD Josh Donaldson DO LABORATORY Final Re sult [facility] - [facility] LAINE[facility] [address] [address], * CBC W/DIFF AUTOMATED (06/30/2024 10:17 AM CDT) WBC 7.0 3.8 - 10.8 Thousand/u L [facility] RBC 5.23 4.20 - 5.80 Million/uL [facility] HGB 15.8 13.2 - 17.1 g/dL [facility] HCT 47.2 38.5 - 50.0 % [facility] MCV 90.2 80.0 - 100.0 fL [facility] MCH 30.2 27.0 - 33.0 pg [facility] MCHC 33.5 32.0 - 36.0 g/dL [facility] Comment: For adults, a slight decrease in the calculated MCHC value (in the range of 30 to 32 g/dL) is most likely not clinically significant; however, it should be interpreted with caution in correlation with other red cell parameters and the patient's clinical condition. RDW 13.6 11.0 - 15.0 % [facility] PLT 175 140 - 400 Thousand/u L [facility] MPV 11.3 7.5 - 12.5 fL [facility] ABS. NEUTROPHILS 4,319 1,500 - 7,800 cells/uL [facility] ABS. LYMPHOCYTES 1,925 850 - 3,900 cells/uL [facility] ABS. MONOCYTES 630 200 - 950 cells/uL [facility] ABS. EOSINOPHILS 98 15 - 500 cells/uL [facility] ABS. BASOPHILS 28 0 - 200 cells/uL [facility] SEG NEUTROPHILS 61.7 % [facility] LYMPHOC[facility]TES 27.5 % [facility] MONOCYTES 9.0 % [facility] EOSINOPHILS 1.4 % [facility] BASOPHILS 0.4 % [facility] 06/30/2024 10:1 7 AM CDT 06/30/2024 10:17 AM CDT Narrative [facility] - 07/01/2024 5:34 AM CDT FASTING:NO FASTING: NO Resulting Agency Comment Performing Organization Information: Site ID: [place] Name: [facility] Address: [address] [address] Director: Mal Shore MD us Josh Donaldson DO LABORATORY Final Re sult [facility] [address] [place] [address], * (ABNORMAL) VITAMIN D 25 OH (06/30/2024 10:17 AM CDT) VITAMIN D 25 HYDROXY TOTAL S/P/B 27(L) 30 - 100 ng/mL [facility] Comment: Vitamin D Status 25-OH Vitamin D: Deficiency: <20 ng/mL Insufficiency: 20 - 29 ng/mL Optimal: > or = 30 ng/mL For 25-OH Vitamin D testing on patients on D2-supplementation and patients for whom quantitation of D2 and D3 fractions is required, the QuestAssureD(TM) 25-OH VIT D, (D2,D3), LC/MS/MS is recommended: order code 58301 (patients >2yrs). See Note 1 Note 1 For additional information, please refer to http://education.SPark!/faq/DFP626 (This link is being provided for informational/ educational purposes only.) 06/30/2024 10:1 7 AM CDT 06/30/2024 10:17 AM CDT Narrative [facility] - 07/01/2024 5:34 AM CDT FASTING:NO FASTING: NO Resulting Agency Comment Performing Organization Information: Site ID: [place] Name: [facility] Address: [address] [place] [address] Director: Mal Shore MD us Josh Donaldson DO LABORATORY Final Re sult [facility] [address] [place] [address], * SLEEP STUDY GENERIC (SCAN ORDER) (06/30/2024) 06/30/2024 us [facility] Scanned SCANNING Final Resu lt * HEPATITIS PANEL,ACUTE (06/24/2019 4:52 AM CDT) HEPATITIS B SURFACE AG NON-REACTI VE NON-REACTI VE 06/24/2019 6:50 AM CDT [facility] HEP B CORE IGM NON-REACTI VE NON-REACTI VE 06/24/2019 7:01 AM CDT [facility] HAV IGM NON-REACTI VE NON-REACTI VE 06/24/2019 7:04 AM CDT [facility] HEPATITIS C AB NON-REACTI VE NON-REACTI VE 06/24/2019 7:01 AM CDT [facility] 06/24/2019 4:52 AM CDT Angelina Herron MD LABORATORY Final Re sult [facility] [address] [place] [address], from Last 3 Months or Most Recently Relevant to Health Maintenance Insurance Advance Directives * Full Code (Latest Code Status on File) Date Activated Date Inactivated Comments 06/21/2019 10:41 PM 06/29/2019 10:48 PM Care Teams Senior Business Intelligence Analyst Relationship Specialty Start Date End Date oJsh Donaldson DO [facility] [place] [address] PCP - General FAMILY PRACTICE 07/06/19 Tim Abreu MD Three [facility]. [address] [address] [place] [employer] Machine Operator CARDIOVASCULAR DISEASE 07/07/19
--- OUTSIDE RECORDS SUMMARY | 2024-07-20 17:57 | XMS_ITS | Encounter Summary ---
Author Organization [facility] Address [address] [place] [address] Care Team Providers Care Dishwasher Busser Name Role Phone Josh Donaldson Primary Care Provider + Tim Abreu MD Unavailable [phone] Reason for Visit * Reason Onset Date Comments Letter 09/08/2019 Encounter Details Date Type Department Care Team (Late st Contact Info) Description 09/08/2019 [employer] Distribution Message [facility] at [address] [address] Tim Abreu MD [address] [address] RE: FW: Follow Up/Update Social History Tobacco Use Types [...] have Coronavirus / COVID-19? No / Unsure 09/06/2019 9:35 AM CDT documented as of this encounter [...] Status No 06/22/2019 2:24 AM CDT Rachael Mendoza, RN Active documented as of this encounter Mental Status * Because of a physical, mental, or emotional condition, do you have serious difficulty concentrating, remembering, or making decisions? Answer Entry Date Author Status No 06/22/2019 2:24 AM CDT Rachael Mendoza, RN Active documented in this encounter Progress Notes * Adrienne Marti - 09/16/2019 2:48 PM CDT Letter was sent on 09/14/19. * PURVI Ortega - 09/08/2019 3:49 PM CDT letter in chart- message to [facility] records to forward to insurance co. * KURT Calvo - 09/08/2019 3:10 PM CDT I wrote a letter yesterday evening for him and sent it to Vanessa but I don't think it went through. I will resend it. documented in this encounter Plan of Treatment Upcoming Encounters Date Type Department Care Team (Late st Contact Info) Description 09/02/2024 1:00 PM CDT Office Visit [facility] Medical Group Multispecialty Care - [facility] [address] [place] [address] Josh Donaldson DO [address] [place] [address] Xi Taveras NP 3 [facility] [address] [place] [address] documented as of this encounter Visit Diagnoses Not on filedocumented in this encounter Additional Health Concerns Assessment Noted Time PHQ-9 Depression Total Score: 0 07/06/19 20 8:41 AM CDT documented as of this encounter Care Teams Dishwasher Busser Relationship Specialty Start Date End Date Josh Donaldson DO [address] [place] [address] PCP - General FAMILY PRACTICE 07/06/19 Tim Abreu MD Three [facility]. [address] [place] [address] [place] [employer] Director CARDIOVASCULAR DISEASE 07/07/19 documented as of this encounter
--- OUTSIDE RECORDS SUMMARY | 2024-07-20 17:57 | XMS_ITS | Encounter Summary ---
Author Organization [facility] Address [address] [place] [address] Care Team Providers Care Metal Base Blocker Name Role Phone Josh Donaldson DO Primary Care Provider + Tim Abreu MD Unavailable [phone] Encounter Details Date Type Department Care Team (Late st Contact Info) Description 07/05/2020 MyChart Message Enc [facility] Medical Group Family & Internal Medicine [facility] [address] [place] [address] Josh Donaldson DO [address] [place] [address] Test Results Social History Tobacco Use Types Packs/Day Years [...] 06/05 PHQ-2 Answer Date Recorded PHQ-2 Score - If the patient scores above 3, please move on to questions 3-9 0 06/22/2020 Sex and Gender Information Value Date Recorded [...] have Coronavirus / COVID-19? No / Unsure 06/22/2020 9:14 AM CDT documented as of this encounter [...] Mendoza RN Active documented in this encounter Progress Notes * Josh Donaldson DO - 07/06/2020 8:50 AM CDT I resulted his labs this morning. documented in this encounter Plan of Treatment Upcoming Encounters Date Type Department Care Team (Late st Contact Info) Description 09/02/2024 1:00 PM CDT Office Visit [facility] Medical Group Multispecialty Care - [address] [place] [address] Josh Donaldson DO [address] [place] [address] Xi Taveras, DAVID [address] [facility] [address] [place] [address] documented as of this encounter Visit Diagnoses Not on filedocumented in this encounter Additional Health Concerns Assessment Noted Time PHQ-9 Depression Total Score: 0 07/06/19 8:41 AM CDT documented as of this encounter Care Teams Metal Base Blocker Relationship Specialty Start Date End Date Josh Donaldson DO [address] [place] [address] PCP - General FAMILY PRACTICE 07/06/19 Tim Abreu MD Three [facility]. [address] [place] [address] [place] Care Transition Coordinator CARDIOVASCULAR DISEASE 07/07/19 documented as of this encounter
== END 2024-07-20 18:00 | disposition left against medical advice (07) ==
LOC: ANHED 18:05
DX: Z53.21 Procedure and treatment not carried out due to patient leaving prior to being seen by health care provider (principal)
CPT/HCPCS: 99199